=== PATIENT | male | born 1965 | race Caucasian/White ===

== ENCOUNTER → 2017-04-11 | Outpatient (CLI) | payer OTHER ==
[~2017-04-11] MED LIST: METF-382 PO; MULT-506 PO; THM100 PO
--- NOTE | 2017-04-11 15:19 | DIAGNOSTIC IMAGING REPORT ---
CHEST 2 VIEWS ROUTINE CLINICAL HISTORY: J18.9 Pneumonia chest pain COMPARISON STUDY: No previous studies for comparison. FINDINGS: The bones soft tissues and hemidiaphragms are normal. The cardiomediastinal silhouette is normal. The lungs are clear. The pulmonary vasculature is normal. IMPRESSION: Negative chest. Electronically signed by: Bk Amaya M.D. 04/11/2017 3:18 PM Dictated Date/Time: 04/11/2017 3:18 PM
== END | disposition home or self-care (01) ==
LOC: C.RAD1850 14:55
PROVIDERS: ATTEND Physician Assistant Medical
DX: J18.9 Pneumonia, unspecified organism (principal)

== ENCOUNTER → 2017-04-13 | Outpatient (CLI) | payer OTHER ==
[2017-04-13 12:16] LABS: BASO % 0.2 %; BASO ABS # 0.01 K/uL (0-0.2); COMPLETE YES; HEMATOCRIT 39.8 % (42-52); IG% 0.2 %; LYMPH ABS # 1.47 K/uL (1.2-3.4); MEAN CELL VOLUME 93.4 fL (80-100); MEAN CORPUSCULAR HEMOGLOBIN 31.2 pg (25-34); MEAN CORPUSCULAR HGB CONC 33.4 g/dl (32-36); MEAN PLATELET VOLUME 10.4 fL (7.4-10.4); MONO % 6.5 %; NEUT % 64.1 %; PLATELET COUNT 196 K/uL (130-400); RED BLOOD COUNT 4.26 M/uL (4.7-6.1); WHITE BLOOD COUNT 5.25 K/uL (4.8-10.8)
[2017-04-13 12:33] LABS: ESTIMATED AVERAGE GLUCOSE 117 mg/dl; HA1C FLAG Normal (Normal)
[2017-04-13 12:44] LABS: ALT/SGPT 20 U/L (12-78); AST/SGOT 17 U/L (15-37); BLOOD UREA NITROGEN 10 mg/dl (7-18); BUN/CREATININE RATIO 10.4 (10-20); CARBON DIOXIDE 27 mmol/L (21-32); CHLORIDE 106 mmol/L (98-107); CHOLESTEROL 142 mg/dl (0-200); CREATININE 0.93 mg/dl (0.60-1.40); GLUCOSE 100 mg/dl (70-99); POTASSIUM 4.2 mmol/L (3.5-5.1); SODIUM 142 mmol/L (136-145); TRIGLYCERIDES 170 mg/dl (0-150); VERY LOW DENSITY LIPOPROT CALC 34 mg/dl
[2017-04-13 12:48] LABS: CALCIUM 9.3 mg/dl (8.5-10.1)
[2017-04-13 12:54] LABS: ALB/GLOB RATIO 1.1 (0.9-2); ALKALINE PHOSPHATASE 55 U/L (45-117); CHOLESTEROL/HDL RATIO 3.3; HDL CHOLESTEROL 43 mg/dl; LDL CHOLESTEROL CALCULATED 65 mg/dl
== END | disposition home or self-care (01) ==
LOC: C.LABBFT 09:11
PROVIDERS: ATTEND Internal Medicine
DX: E11.9 Type 2 diabetes mellitus without complications (principal); E78.5 Hyperlipidemia, unspecified